=== PATIENT | female | born 1985 | race African-American/Black ===

== ENCOUNTER → 2016-07-24 | Outpatient (CLI) | payer OTHER ==
[2016-07-24 19:00] LABS: BASO % 0.5 % (0.0-1.0); EOS # 0.2 K/mm3 (0.0-0.50); EOS % 2.5 % (0.0-3.0); LARGE UNSTAINED CELL # 0.1 K/mm3 (0.0-0.4); LARGE UNSTAINED CELL % 1.9 % (0.0-4.0); MEAN CORPUSCULAR HEMOGLOBIN 29.4 pg (27.0-33.0); MEAN CORPUSCULAR HGB CONC 32.7 g/dl (32.0-36.5); MEAN CORPUSCULAR VOLUME 89.7 fl (80.0-96.0); MONO # 0.4 K/mm3 (0.0-0.8); NEUTROPHILS # 4.7 K/mm3 (1.8-7.7); NEUTROPHILS % 63.1 % (36.0-66.0); PLATELET COUNT, AUTOMATED 234 k/mm3 (150-450); RED CELL DISTRIBUTION WIDTH 12.2 % (11.5-14.5); WHITE BLOOD COUNT 7.5 K/mm3 (4.0-10.0)
[2016-07-25 10:04] LABS: HBsAg Prenatal NEGATIVE (NEGATIVE)
[2016-07-25 14:16] LABS: CONTROL LINE INT CTR LINE PRESENT; HIV SCRN NEGATIVE (NEGATIVE); HIV SCRN1 NEGATIVE (NEGATIVE)
== END ==
LOC: M SMT 14:11
PROVIDERS: ATTEND Advanced Practice Midwife
DX: Z34.81 Encounter for supervision of other normal pregnancy, first trimester (principal)

== ENCOUNTER → 2016-09-18 | Outpatient (CLI) | payer OTHER | LOC: M SMT 15:21 | PROVIDERS: ATTEND Obstetrics & Gynecology | DX: Z31.430 Encounter of female for testing for genetic disease carrier status for procreative management (principal) ==

== ENCOUNTER → 2016-10-02 | Outpatient (CLI) | payer OTHER ==
--- NOTE | 2016-10-03 05:35 | REP ---
Clinical: Anatomical evaluation. Comparison: 09/06/2016 . Findings: Examination demonstrates a single live intrauterine in transverse (head to maternal left side) presentation. motion is identified by technologist. Placenta is noted posteriorly and grade zero without evidence for placenta previa or abruption. Amniotic fluid volume is normal. Cervix measures 6.5 cm in length and appears closed. No evidence for nuchal cord. Gestational age by current measurements 18 weeks 4 days with LO 03/01/2017 . FHR equals 157 beats per minute. BPD 4.1 cm 18 weeks 3 days HC 15.3 cm 18 weeks 2 days AC 13.4 cm 18 weeks 6 days FL 3.0 cm 19 weeks 3 days HL 2.7 cm 18 weeks 5 days HC/AC ratio 1.15 Estimated weight 260 grams ( 60th percentile). Anatomical assessment demonstrates normal structures including cranium, choroid plexus, cavum, cerebellum/posterior fossa, lungs, diaphragm, stomach, cord insertion/three-vessel cord, kidneys/bladder, spine, and extremities. Limited evaluation of the facial features, heart/ventricular outflow tracts, and transverse three-vessel cord. Impression: Single live intrauterine in transverse lie. While no gross abnormalities are identified, anatomical limitations may warrant followup. Signed by Juan Oreilly MD 10/03/2016 05:26 A
== END ==
LOC: M SMT 12:56
PROVIDERS: ATTEND Obstetrics & Gynecology
DX: O34.211 Maternal care for low transverse scar from previous cesarean delivery (principal); Z36 Encounter for antenatal screening of mother; Z3A.18 18 weeks gestation of pregnancy

== ENCOUNTER → 2016-10-24 | Outpatient (CLI) | payer OTHER ==
--- NOTE | 2016-10-24 11:38 | REP ---
Clinical: Anatomical evaluation. Comparison: 10/02/2016 . Findings: Examination demonstrates a single live intrauterine in breech presentation. motion is identified by technologist. Placenta is noted posteriorly and grade 0 without evidence for placenta previa or abruption. Amniotic fluid volume is normal. Cervix measures 6.6 cm in length and appears closed. No evidence for nuchal cord. Gestational age by first ultrasound 21 weeks 5 days with LO is 03/01/2017 . Gestational age by current measurements 21 weeks 5 day with LO 03/01/2017 . FHR equals 133 beats per minute. Estimated weight 501 grams ( 66th percentile). Anatomical assessment demonstrates normal structures including cranium, choroid plexus, cavum, cerebellum/posterior fossa, facial features, lungs, four-chamber heart/ventricular outflow tracts, diaphragm, stomach, cord insertion/three-vessel cord, kidneys/bladder, spine, and extremities. Impression: Single live intrauterine in breech presentation demonstrating appropriate interval growth. Anatomical assessment is complete and normal. Signed by Juan Oreilly MD 10/24/2016 11:30 A
== END ==
LOC: M SMT 09:22
PROVIDERS: ATTEND Specialist
DX: O32.1XX0 Maternal care for breech presentation, not applicable or unspecified (principal); Z36 Encounter for antenatal screening of mother; Z3A.21 21 weeks gestation of pregnancy

== ENCOUNTER → 2016-11-27 | Outpatient (CLI) | payer OTHER ==
[2016-11-27 15:09] LABS: BASO % 0.2 % (0.0-1.0); EOS # 0.2 K/mm3 (0.0-0.50); LARGE UNSTAINED CELL # 0.1 K/mm3 (0.0-0.4); LARGE UNSTAINED CELL % 1.3 % (0.0-4.0); LYMPH # 1.8 K/mm3 (1.5-4.5); LYMPH % 19.2 % (24.0-44.0); MEAN CORPUSCULAR HEMOGLOBIN 29.1 pg (27.0-33.0); MEAN CORPUSCULAR HGB CONC 32.5 g/dl (32.0-36.5); MEAN CORPUSCULAR VOLUME 89.5 fl (80.0-96.0); MONO # 0.4 K/mm3 (0.0-0.8); NEUTROPHILS # 6.4 K/mm3 (1.8-7.7); NEUTROPHILS % 72.4 % (36.0-66.0); PLATELET COUNT, AUTOMATED 198 k/mm3 (150-450); RED CELL DISTRIBUTION WIDTH 13.9 % (11.5-14.5); WHITE BLOOD COUNT 8.9 K/mm3 (4.0-10.0)
== END ==
LOC: M SMT 10:03
PROVIDERS: ATTEND Obstetrics & Gynecology
DX: Z34.82 Encounter for supervision of other normal pregnancy, second trimester (principal); Z36 Encounter for antenatal screening of mother; Z3A.00 Weeks of gestation of pregnancy not specified

== ENCOUNTER → 2016-12-18 | Outpatient (CLI) | payer OTHER ==
[~2016-12-18] MED LIST: COLA100C5 PO; PRENTAB55 PO; PRIL20CA9 PO; TYLE500T78 PO; VICO5TAB16 PO
== END ==
LOC: M LAB 06:59
PROVIDERS: ATTEND Advanced Practice Midwife
DX: Z34.82 Encounter for supervision of other normal pregnancy, second trimester (principal); Z36 Encounter for antenatal screening of mother; Z3A.00 Weeks of gestation of pregnancy not specified

== ENCOUNTER → 2017-01-15 | Outpatient (CLI) | payer OTHER ==
--- NOTE | 2017-01-15 17:41 | REP ---
OB ULTRASOUND: Real-time sonographic evaluation of the gravid uterus is performed. There is a single living intrauterine gestation with estimated gestational age of 33 weeks 4 days. Based on the first ultrasound EDC 03/01/2017. Today's measurements indicate appropriate growth. BPD 80 mm = 32 weeks 2 days, at the 38th percentile. HC 308 mm = 34 weeks 3 days, at the 61st percentile. AC 314 mm = 35 weeks 3 day, at the 76th percentile. Femur length 68 mm = 35 weeks 1 days, at the 72nd percentile. HC/AC ratio 0.98 within normal range. Estimated weight 2532 grams 69th percentile. Cervix is closed measures 6.8 cm in length. heart rate 139 beats per minute. Amniotic fluid within normal limits, JORGITO 13.1 within normal range of 8.2 to 24.7. SD ratio normal at 2.55. RI normal at 0.61. Stomach, kidneys, and bladder are visualized and are grossly unremarkable. position vertex. Placenta is anterior with no previa. IMPRESSION: Appropriate growth. Signed by Giovanni Mares MD 01/15/2017 08:14 P
== END ==
LOC: M SMT 15:01
PROVIDERS: ATTEND Obstetrics & Gynecology
DX: Z34.83 Encounter for supervision of other normal pregnancy, third trimester (principal)

== ENCOUNTER → 2017-02-06 | Outpatient (REF) | payer OTHER | LOC: M LAB REF 13:15 | PROVIDERS: ATTEND Specialist | DX: Z34.83 Encounter for supervision of other normal pregnancy, third trimester (principal); Z36 Encounter for antenatal screening of mother; Z3A.00 Weeks of gestation of pregnancy not specified ==

== ENCOUNTER 2017-02-19 13:07 | Outpatient (CLI) | payer OTHER ==
[~2017-02-19] VITALS: Ht 162.6 cm; Wt 106.0 kg
[~2017-02-19 13:07] MED LIST changes: -COLA100C5 PO; -VICO5TAB16 PO
[2017-02-19 13:29] VITALS: BP 136/64
[2017-02-19 13:49] LABS: MEAN CORPUSCULAR HEMOGLOBIN 28.7 pg (27.0-33.0); MEAN CORPUSCULAR HGB CONC 32.8 g/dl (32.0-36.5); MEAN CORPUSCULAR VOLUME 87.7 fl (80.0-96.0); RED CELL DISTRIBUTION WIDTH 14.8 % (11.5-14.5); WHITE BLOOD COUNT 7.8 K/mm3 (4.0-10.0)
[2017-02-19 14:06] LABS: INR 0.9
[2017-02-19 15:07] VITALS: BP 109/55
[2017-02-19 17:01] VITALS: BP 123/63
== END 2017-02-19 17:12 | disposition home or self-care (01) ==
LOC: M LDO 13:07
PROVIDERS: ATTEND Advanced Practice Midwife
DX: O9A.213 Injury, poisoning and certain other consequences of external causes complicating pregnancy, third trimester (principal); S39.92XA Unspecified injury of lower back, initial encounter; X58.XXXA Exposure to other specified factors, initial encounter; Y92.019 Unspecified place in single-family (private) house as the place of occurrence of the external cause; Y93.89 Activity, other specified; Y99.8 Other external cause status; O09.293 Supervision of pregnancy with other poor reproductive or obstetric history, third trimester; Z3A.38 38 weeks gestation of pregnancy

== ENCOUNTER 2017-02-21 22:58 | Inpatient (IN) | payer OTHER ==
[~2017-02-21] VITALS: Ht 162.6 cm; Wt 120.0 kg
[2017-02-22] VITALS (14 sets, daily range): BP systolic 93–166; BP diastolic 51–85
--- NOTE | 2017-02-22 00:27 | ED PDOC ---
Provider Note 31-year-old 4, para 3002 estimated date of delivery 03/04/2017, presents at 38 weeks 4 days with complaints of bleeding. Denies loss of fluid or regular contractions. Fetus is active. Denies recent intercourse. History is significant for a fall earlier this week. She states she slid down the stairs. She was monitored on labor and delivery for 4-5 hours and then discharged. Patient is a scheduled for Saturday. Previous C-sections 2. History of a 40 week stillborn in 2004 Vital signs are stable. She is in no apparent distress. Abdomen soft, gravid, longitudinal lie, no contractions noted on the monitor. heart 145, moderate variability with accelerations, category 1 tracing. Sterile speculum exam moderate amount of old bloody discharge. Small clots. Sterile vaginal exam cervix is far posterior, soft, approximately 1 cm Assessment 31-year-old 4, para 3002 at 38 weeks 4 days. Bleeding post fall earlier this week. Reassuring status. OB ultrasound and transvaginal ultrasound to rule out abruption. CBC and Kleihauer-Betke. Observe for further bleeding Patt Sutton CNM Feb 22, 2017 00:26
[2017-02-22 01:27] LABS: MEAN CORPUSCULAR HEMOGLOBIN 29.1 pg (27.0-33.0); MEAN CORPUSCULAR HGB CONC 33.1 g/dl (32.0-36.5); MEAN CORPUSCULAR VOLUME 87.9 fl (80.0-96.0); RED CELL DISTRIBUTION WIDTH 14.8 % (11.5-14.5); WHITE BLOOD COUNT 9.2 K/mm3 (4.0-10.0)
--- NOTE | 2017-02-22 02:30 | REPUSA ---
CLINICAL HISTORY: Vaginal bleeding. TECHNIQUE: Realtime sonographic images were obtained in multiple projections via TA approach. The exa mination was performed by the correctional case manager and still images were submitted for interpretation. COMMENTS: Single, live intrauterine gestation. Vertex presentation. motion was identified. heart rate 132 beats per minute. Posterior/right lateral placental. No evidence of placental previa or placental abruption. Placenta grade 2. The amniotic fluid is within normal limits. The cervix measures 5.5 cm. No maternal adnexal abnormality. Estimated gestation age is 38 weeks and 2 days. There has been appropriate interval growth since the prior exam. gender was documented as female. Nuchal CORD was not seen. The resistive index in the umbilical cord is ranging between 0.45 and 0.61. Amniotic fluid index 12.4 cm. Estimated weight is 3453 g. IMPRESSION: Single, live intrauterine gestation. Thank you for your kind referral of this patient.
[2017-02-22] MEDS ORDERED: BICITRA 30ML SOLN UDC PO ONE (09:30)
[2017-02-22] MEDS ORDERED: LR 1,000 ML IV SCH (13:00)
[2017-02-22] MEDS ORDERED: LACTATED RINGER'S 1000 ML IV ONE (13:00)
[2017-02-22] MEDS ORDERED: OXYTOCIN INJ 10 UNITS/ML VIAL (J2590) As Ordered ONE (13:34)
[2017-02-22] MEDS ORDERED: MORPHINE PRES-FREE INJ 10 MG/10 ML VIAL (J2274) As Ordered ONE (13:34)
[2017-02-22] MEDS ORDERED: ePHEDrine SULFATE 25 MG/5 ML(5MG/ML) SYRINGE As Ordered ONE (13:37)
[2017-02-22] MEDS ORDERED: PHENYLephrine HCL 500 MCG/5 ML (100MCG/ML) SYRINGE (J2370) As Ordered ONE (13:37)
[2017-02-22] MEDS ORDERED: KETOROLAC 60 MG/2 ML VIAL (J1885) As Ordered ONE (13:45)
[2017-02-22] MEDS ORDERED: ONDANSETRON 4MG/2ML VIAL (J2405) As Ordered ONE (13:45)
[2017-02-22] MEDS ORDERED: OXYTOCIN DRIP 30 UNITS in APPROPRIATE DILUENT 1 EA IV ONE (14:15)
[2017-02-22] MEDS ORDERED: MEASLES,MUMPS,RUBELLA VACCINE INJ (MMR-II) (90707) SC SCH (14:15)
[2017-02-22] MEDS ORDERED: DOCUSATE SODIUM 100 MG CAP PO PRN (14:15)
[2017-02-22] MEDS ORDERED: RHOGAM 300 MCG (1500 IU) INJ (J2790) IM SCH (14:15)
[2017-02-22] MEDS ORDERED: ONDANSETRON 4MG/2ML VIAL (J2405) IV PRN (14:45)
[2017-02-22] MEDS ORDERED: fentaNYL 100 MCG/2 ML INJECTION (J3010) IV PRN (14:45)
[2017-02-22] MEDS: LR 1,000 ML IV SCH ×2 (16:49→23:52)
[2017-02-22] MEDS: KETOROLAC 30 MG/ML VIAL (J1885) IV SCH (20:51)
--- NOTE | 2017-02-22 21:12 | HPE ---
DATE OF ADMISSION: 02/22/2017 REASON FOR ADMISSION: Vaginal bleeding. HISTORY OF PRESENT ILLNESS: This patient is a 31-year-old 4, para 2, who presents at 38 weeks and three days estimated gestational age by last menstrual period confirmed from first-trimester ultrasound, with complaints of vaginal bleeding. She reports having a fall on Saturday. She slipped and fell down a several steps. She presented to labor and delivery at that point and was monitored and was found to be stable, and was discharged home. On the day of presentation, she reports having a large amount of vaginal bleeding, presented to labor and delivery where she was assessed and noted to have some vaginal blood on speculum exam. She reports irregular contractions as well as movement. Her course has been unremarkable. She initiated care in the first trimester, has been appropriate throughout. PAST MEDICAL HISTORY: None. PAST SURGICAL HISTORY: She has had two sections, oral surgery and a laparoscopy. MEDICATIONS: vitamins. ALLERGIES: MEDICAL TAPE. SOCIAL HISTORY: She denies any alcohol, tobacco or drug use during her . OBSTETRICAL HISTORY: She has had a still at 40 weeks, vaginal delivery for that, followed by to sections at term, both uncomplicated. PHYSICAL EXAMINATION: VITAL SIGNS: Stable. She is afebrile. She has category heart tracing. Variability on tocometer. GENERAL APPEARANCE: Is well appearing, in no acute distress. LUNGS: Clear to auscultation bilaterally. CARDIOVASCULAR: Heart regular rate and rhythm. ABDOMEN: Gravid, nontender. VAGINA: On speculum exam, she had a minimum to moderate amount of vaginal bleeding. ASSESSMENT: 1. This patient is a 31-year-old 4, para 2, at 38 weeks and three days estimated gestational age, with concerns for placenta abruption. 2. Reassuring status currently. PLAN: Proceed with delivery with a repeat section. JESUS
--- NOTE | 2017-02-22 21:43 | RO ---
DATE OF PROCEDURE: 02/22/2017 PREPROCEDURE DIAGNOSES: 1. Intrauterine at 38 weeks 3 days with concerns for placenta abruption. 2. Repeat section. POSTPROCEDURE DIAGNOSES: 1. Intrauterine at 38 weeks 3 days with concerns for placenta abruption. 2. Repeat section. OPERATIVE PROCEDURE: Repeat section. SURGEON: Juanis Mensah MD TRANSFORMER COIL WINDER: Marvin Pritchett MD ANESTHESIA: Spinal. ESTIMATED BLOOD LOSS: 500 mL. URINE OUTPUT: 100 mL INTRAVENOUS FLUIDS: 1100 mL of lactated Ringers solution. PREOPERATIVE ANTIBIOTICS: 2 grams of Ancef. OPERATIVE FINDINGS: Live born female infant, Apgars of 9 and 9. Weight was 3680 grams or 8 pounds 2 ounces. DESCRIPTION OF PROCEDURE: After informed consent was obtained and written consent was reviewed, the patient was brought to the operating room where spinal anesthesia was then placed. She was then placed in the supine position with a left lateral tilt. A Anaya catheter was placed and set to gravity. She was then prepped and draped in a normal sterile fashion. A time out in the operating room was then performed identifying the patient, procedure to be performed as well as drug allergies. Anesthesia was tested and deemed to be adequate. A Pfannenstiel skin incision was then made along the previous skin incision and carried down to the underlying rectus fascia. The fascia was scored and this incision was extended bilaterally. The fascia was then dissected off the underlying rectus muscles both superiorly and inferiorly. The rectus muscles were then in the midline. The peritoneum was then entered sharply. The vesicouterine peritoneum was then identified, was tented and excised to create a bladder flap. The bladder blade was then placed to retract back the bladder. Curvilinear incision was then made in the lower uterine segment. Amniotomy was then performed productive of clear fluid. The head was then brought to the level of the incision, was delivered atraumatically followed by delivery of shoulders and corpus. Cord was clamped times two and was cut. was taken over to the warmer with a good cry. Placenta was then drained and delivered grossly intact. The uterus was then exteriorized and cleared of all clots and debris. The uterine incision was then closed in two layers using #0 Vicryl first layer in a running locking fashion, followed by a second layer for imbrication in a running nonlocking fashion. The abdomen was then suctioned. The uterus was returned to the patient's abdomen, inspected and noted to be hemostatic. The anterior peritoneum was then reapproximated with #3-0 Vicryl. Rectus muscles were reapproximated with #3-0 Vicryl. The fascia was then closed with #0 Vicryl in a running nonlocking fashion. Subcutaneous tissue was then irrigated and suctioned. Subcutaneous tissue was then reapproximated using #3-0 Vicryl. Several strips of dermal stitches were placed with #3-0 Vicryl and the skin was closed with #4-0 Monocryl in subcuticular fashion. The incision was then clean and dry. Mastisol was applied above and below the incision. Steri-Strips were applied over the incision and the incision was then dressed. The patient was then taken to recovery in stable condition. The couple has decided to name their daughter, Aileen.
[2017-02-23 02:00] VITALS: BP 120/68
[2017-02-23] MEDS: KETOROLAC 30 MG/ML VIAL (J1885) IV SCH ×3 (02:06→14:18)
[2017-02-23 06:00] VITALS: BP 102/54
[2017-02-23] MEDS: LR 1,000 ML IV SCH ×3 (06:12→22:12)
[2017-02-23 07:36] LABS: MEAN CORPUSCULAR HEMOGLOBIN 29.1 pg (27.0-33.0); MEAN CORPUSCULAR HGB CONC 32.8 g/dl (32.0-36.5); MEAN CORPUSCULAR VOLUME 88.6 fl (80.0-96.0); RED CELL DISTRIBUTION WIDTH 14.7 % (11.5-14.5)
[2017-02-23] MEDS: PRENATAL VITAMINS CHEWABLE TABLET PO SCH (08:00)
[2017-02-23 10:17] VITALS: BP 113/69
[2017-02-23] MEDS: PERCOCET 5MG/325MG TAB PO PRN ×2 (11:11→18:13)
[2017-02-23 14:00] VITALS: BP 133/75
[2017-02-23 18:22] VITALS: BP 128/75
[2017-02-23] MEDS: IBUPROFEN 800 MG TAB PO SCH (22:04)
[2017-02-23 22:45] VITALS: BP 122/58
[2017-02-24] MEDS: PERCOCET 5MG/325MG TAB PO PRN ×3 (00:20→12:26)
[2017-02-24 05:49] VITALS: BP 114/71
[2017-02-24] MEDS: IBUPROFEN 800 MG TAB PO SCH (05:52)
[2017-02-24] MEDS: LR 1,000 ML IV SCH (06:12)
[2017-02-24] MEDS: PRENATAL VITAMINS CHEWABLE TABLET PO SCH (08:22)
[2017-02-24] MEDS ORDERED: ADACEL/BOOSTRIX VACCINE (DIPHTH/PERTUSS/ACELL/TETANUS)0.5ML SYR (90715) IM ONE (09:00)
--- NOTE | 2017-02-24 09:33 | DSES ---
DATE OF ADMISSION: 02/22/2017 DATE OF DISCHARGE:02/24/2017 DISCHARGE DIAGNOSES: 1. Placenta abruption. 2. Repeat section. DISCHARGE CONDITION: Stable. HISTORY AND HOSPITAL COURSE: Mrs. Field is a 31-year-old, 4, para 2, who presented to labor and delivery at 38 weeks 3 days estimated gestational age with active vaginal bleeding concerning for placenta abruption. I then proceeded with a repeat section which was productive of a live born female . Apgars were 9 and 9. The patient did well postoperatively. By postoperative day #2, had met all discharge criteria and was discharged home in stable condition. PHYSICAL EXAM ON DATE OF DISCHARGE: Her vital signs were stable. She was afebrile. General Appearance: Well appearing. No acute distress. Her abdomen was soft, appropriately tender. Fundus was firm below umbilicus. Her incision was clean, dry and intact, well approximated with Steri-Strips and nonerythemic. Extremities: Negative for calf tenderness. DISCHARGE MEDICATIONS: - Vicodin - ibuprofen DISCHARGE INSTRUCTIONS: 1. She was instructed to followup in two weeks for incision check. 2. To report severe pain, heavy vaginal bleeding, fever, incision issues. 3. To remain on pelvic rest for 6 weeks. JESUS
[2017-02-24] MEDS ORDERED: VICO5TAB16 PO (09:34)
[2017-02-24] MEDS ORDERED: COLA100C5 PO (09:34)
== END 2017-02-24 14:30 | disposition home or self-care (01) | DRG 766 ==
LOC: M LDO 22:58 → M LDI 02-22 09:10 → M OBS 02-22 16:33
PROVIDERS: ADMIT Obstetrics & Gynecology; ATTEND Obstetrics & Gynecology
PROC: 10D00Z1 Extraction of Products of Conception, Low, Open Approach (ICD-10-PCS; principal; 2017-02-22 13:09)
DX: O45.93 Premature separation of placenta, unspecified, third trimester (principal); Z3A.38 38 weeks gestation of pregnancy; Z37.0 Single live birth; Z91.81 History of falling; O9A.213 Injury, poisoning and certain other consequences of external causes complicating pregnancy, third trimester; S39.92XA Unspecified injury of lower back, initial encounter; W10.9XXA Fall (on) (from) unspecified stairs and steps, initial encounter; Y92.019 Unspecified place in single-family (private) house as the place of occurrence of the external cause; Y93.89 Activity, other specified; Y99.8 Other external cause status

== ENCOUNTER → 2018-02-28 | Outpatient (CLI) | payer OTHER | LOC: M RAD 06:13 | DX: R11.2 Nausea with vomiting, unspecified (principal) ==

== ENCOUNTER 2018-03-07 09:48 | Day surgery (SDC) | payer OTHER ==
[2018-03-07] MEDS: NS 1,000 ML IV (10:17)
[2018-03-07] MEDS ORDERED: LIDOCAINE 2% INJ 100 MG/5 ML SDV (FOR ANES.) As Ordered (10:54)
[2018-03-07] MEDS ORDERED: PROPOFOL 200 MG/20 ML VIAL As Ordered ×2 (10:54→11:04)
== END 2018-03-07 12:16 | disposition home or self-care (01) ==
LOC: M OPP 09:48
DX: K64.8 Other hemorrhoids (principal); D12.2 Benign neoplasm of ascending colon; D12.3 Benign neoplasm of transverse colon; D12.4 Benign neoplasm of descending colon; K92.1 Melena; G47.30 Sleep apnea, unspecified; F41.9 Anxiety disorder, unspecified; F32.9 Major depressive disorder, single episode, unspecified; G43.909 Migraine, unspecified, not intractable, without status migrainosus; Z79.899 Other long term (current) drug therapy; Z91.048 Other nonmedicinal substance allergy status
CPT/HCPCS: 45385

== ENCOUNTER → 2018-04-09 | Outpatient (CLI) | payer OTHER ==
[~2018-04-09] MED LIST changes: -PRENTAB55 PO; -PRIL20CA9 PO; +PROHANCE 279.3MG/ML 15ML VIAL (A9576) As Ordered; +PROHANCE 279.3MG/ML 5ML VIAL (A9576) As Ordered; -TYLE500T78 PO
== END ==
LOC: M RAD 11:08
DX: Q44.6 Cystic disease of liver (principal)

== ENCOUNTER → 2018-08-08 | Outpatient (REF) | payer OTHER ==
[~2018-08-08] MED LIST changes: +COLA100C5 PO; +MACR100C43 PO; +NORE0.353 PO; +OMEP20CA3 PO; +PRENTAB29 PO; +PRENTAB55 PO; +PRIL20CA9 PO; -PROHANCE 279.3MG/ML 15ML VIAL (A9576) As Ordered; -PROHANCE 279.3MG/ML 5ML VIAL (A9576) As Ordered; +TYLE500T78 PO; +VICO5TAB16 PO
[2018-08-08 22:44] LABS: CHLAMYDIA DNA AMPLIFICATION NEGATIVE (NEGATIVE); GC DNA AMPLIFICATION NEGATIVE (NEGATIVE)
== END ==
LOC: M SFHCLERA 15:17
PROVIDERS: ATTEND Nurse Practitioner Family
DX: N30.00 Acute cystitis without hematuria (principal)

== ENCOUNTER 2018-08-12 11:00 | Day surgery (SDC) | payer OTHER ==
[~2018-08-12] VITALS: Ht 162.6 cm; Wt 111.1 kg
[~2018-08-12 11:00] MED LIST changes: -MACR100C43 PO; +NS 1,000 ML IV ONE
[2018-08-12] MEDS ORDERED: MACR100C43 PO (12:53)
[2018-08-12] MEDS ORDERED: PROPOFOL 200 MG/20 ML VIAL As Ordered ONE (13:23)
[2018-08-12 13:55] VITALS: BP 130/85
--- NOTE | 2018-08-12 13:57 | ROOR ---
Patient Name: Marlyn Hawknis Procedure Date: 08/12/2018 1:03 PM Date of : 1985 Age: 32 Room: [facility] Gender: Female Note Status: Finalized Procedure: Upper GI endoscopy Indications: Surveillance for malignancy due to personal history of polyposis syndrome, Familial Adenomatous Polyposis syndrome Providers: Elvis Ritter MD Referring MD: 1. No Referring Physician 1. No Referring Physician, Admin. Requesting Provider: Medicines: Monitored Anesthesia Care Complications: No immediate complications. Procedure: Pre-Anesthesia Assessment: - Prior to the procedure, a History and Physical was performed, and patient medications and allergies were reviewed. The patient is competent. The risks and benefits of the procedure and the sedation options and risks were discussed with the patient. All questions were answered and informed consent was obtained. Patient identification and proposed procedure were verified by the physician, the nurse and the anesthesiologist in the procedure room. Mental Status Examination: alert and oriented. Airway Examination: normal oropharyngeal airway and neck mobility. Respiratory Examination: clear to auscultation. CV Examination: normal. Prophylactic Antibiotics: The patient does not require prophylactic antibiotics. Prior Anticoagulants: The patient has taken no previous anticoagulant or antiplatelet agents. ASA Grade Assessment: II - A patient with mild systemic disease. After reviewing the risks and benefits, the patient was deemed in satisfactory condition to undergo the procedure. The anesthesia plan was to use monitored anesthesia care (MAC). Immediately prior to administration of medications, the patient was re-assessed for adequacy to receive sedatives. The heart rate, respiratory rate, oxygen saturations, blood pressure, adequacy of pulmonary ventilation, and response to care were monitored throughout the procedure. The physical status of the patient was re-assessed after the procedure. The Endoscope was introduced through the mouth, and advanced to the second part of duodenum. The upper GI endoscopy was accomplished without difficulty. The patient tolerated the procedure well. Findings: The examined esophagus was normal. Multiple 6 mm sessile fundic gland polyps with no bleeding and no stigmata of recent bleeding were found in the gastric fundus and in the gastric body. Two biopsies were obtained with cold forceps for histology in the gastric antrum, as well as five biopsies in the gastric body and four biopsies in the gastric fundus. Verification of patient identification for the specimen was done by the physician and nurse using the patient's name, date and medical record number. Estimated blood loss was minimal. The duodenal bulb, second portion of the duodenum, major papilla, area of the papilla, third portion of the duodenum and fourth portion of the duodenum were normal. There is no endoscopic evidence of mass or polyps in the examined jejunum ( atleast 25 cm was examined). Impression: - Normal esophagus. - Multiple fundic gland polyps. - Normal duodenal bulb, second portion of the duodenum, major papilla, area of the papilla, third portion of the duodenum and fourth portion of the duodenum and upto 25 cm of proximal jejunum. - Biopsies performed in the gastric antrum, in the gastric body and in the gastric fundus. Recommendation: - Patient has a contact number available for emergencies. The signs and symptoms of potential delayed complications were discussed with the patient. Return to normal activities tomorrow. Written discharge instructions were provided to the patient. - Resume previous diet. - Continue present medications. - Await pathology results. - Repeat upper endoscopy in 6 months for surveillance of multiple polyps. - Return to GI clinic in 6 months. - Return to primary care physician. Elvis Ritter MD Elvis Ritter MD 08/12/2018 1:56:50 PM This report has been signed electronically. Number of Addenda: 0 Note Initiated On: 08/12/2018 1:03 PM Estimated Blood Loss: Estimated blood loss was minimal.
== END 2018-08-12 14:21 | disposition home or self-care (01) ==
LOC: M OPP 11:00
PROVIDERS: ATTEND Internal Medicine Gastroenterology
DX: K31.7 Polyp of stomach and duodenum (principal); Z86.010 Personal history of colon polyps; Z83.71 Family history of colonic polyps

== ENCOUNTER → 2018-09-03 | Outpatient (CLI) | payer OTHER ==
[~2018-09-03] MED LIST changes: +MACR100C43 PO; -NS 1,000 ML IV ONE; +PROHANCE 279.3MG/ML 15ML VIAL (A9576) As Ordered ONE; +PROHANCE 279.3MG/ML 5ML VIAL (A9576) As Ordered ONE
--- NOTE | 2018-09-03 15:24 | REP ---
MRI LIVER WITH AND WITHOUT CONTRAST: COMPARISON: 04/09/2018 TECHNIQUE: Multiple sequences obtained in the axial and coronal planes prior to and following the intravenous administration of 20 mL ProHance. Once again, in the right lobe of the liver posterior segment, there is an enhancing lesion in the arterial phase of postcontrast imaging. There is central enhancement with a rim of hypointensity. Diameter is approximately 1.2 cm. This is unchanged. More inferiorly in the posterior segment of the right lobe of the liver laterally, there is a 2.6 cm enhancing nodule which has similar enhancement characteristics. This is also unchanged. No new liver nodule is seen. Spleen, adrenals, pancreas, and kidneys are unremarkable. There is no adenopathy in the visualized abdomen nor is there evidence of free fluid. There is a tiny amount of pleural fluid present bilaterally. IMPRESSION: Stable liver nodules as discussed above when compared to the prior study of 04/09/2018. Again, these are felt to most likely represent adenomas. Recommend followup exam in 6-12 months. Electronically Signed by Giovanni Mares MD 09/03/2018 04:57 P
== END ==
LOC: M RAD 13:08
PROVIDERS: ATTEND Internal Medicine Gastroenterology
DX: Q44.6 Cystic disease of liver (principal); D13.4 Benign neoplasm of liver
CPT/HCPCS: 74183; A9576

== ENCOUNTER → 2018-10-23 | Outpatient (CLI) | payer OTHER ==
[~2018-10-23] MED LIST changes: +ACET1LIQ PO; +IBUP-1114 PO; +PERC5TAB12 PO; -PROHANCE 279.3MG/ML 15ML VIAL (A9576) As Ordered ONE; -PROHANCE 279.3MG/ML 5ML VIAL (A9576) As Ordered ONE; -VICO5TAB16 PO; +VICO5TAB17 PO
== END ==
LOC: M LAB 11:36
PROVIDERS: ATTEND Obstetrics & Gynecology
DX: O20.0 Threatened abortion (principal); Z3A.00 Weeks of gestation of pregnancy not specified

== ENCOUNTER 2018-10-24 19:23 | Day surgery (SDC) | payer OTHER ==
[~2018-10-24] VITALS: Ht 162.6 cm; Wt 113.6 kg
[~2018-10-24 19:23] MED LIST changes: -ACET1LIQ PO; -IBUP-1114 PO; -PERC5TAB12 PO
[2018-10-24] MEDS ORDERED: PERC5TAB12 PO (19:35)
[2018-10-24] MEDS ORDERED: ONDANSETRON 4MG/2ML VIAL (J2405) IV ONE (20:00)
[2018-10-24 20:49] LABS: BASO % 0.4 % (0.0-1.0); EOS # 0.2 10^3/uL (0.0-0.50); EOS % 1.8 % (0.0-3.0); HEMATOCRIT 37.8 % (36.0-47.0); HEMOGLOBIN 12.2 g/dl (12.0-15.5); LYMPH # 2.5 10^3/uL (1.5-4.5); LYMPH % 27.5 % (24.0-44.0); MEAN CORPUSCULAR HEMOGLOBIN 29.3 pg (27.0-33.0); MEAN CORPUSCULAR HGB CONC 32.3 g/dl (32.0-36.5); MEAN CORPUSCULAR VOLUME 90.6 fl (80.0-96.0); MONO # 0.6 10^3/uL (0.0-0.8); MONO % 6.4 % (0.0-5.0); NEUTROPHILS # 5.8 10^3/uL (1.8-7.7); NEUTROPHILS % 63.7 % (36.0-66.0); PLATELET COUNT, AUTOMATED 257 10^3/uL (150-450); RED BLOOD COUNT 4.17 10^6/uL (4.00-5.40)
[2018-10-24] MEDS: MORPHINE 4 MG/ML 1ML VIAL/SYRINGE (J2270) IV PRN ×2 (20:53→21:40)
--- NOTE | 2018-10-24 20:57 | REPVR ---
EXAM: US First Trimester, Transabdominal EXAM DATE/TIME: 10/24/2018 8:19 PM CLINICAL HISTORY: 33 years old, female; complicated by abdominal or pelvic pain; Lower; First trimester; Gestational age or lmp: 08/13/18; ; Additional info: Worsening pelvic pain, positive hcg TECHNIQUE: Imaging protocol: Real-time transabdominal obstetrical ultrasound of the maternal pelvis and a first trimester , less than 14 weeks 0 days, with image documentation. COMPARISON: No relevant prior studies available. FINDINGS: GESTATION: Gestation: Gestational sac within the endometrium with no pole or yolk sac. BIOMETRY: Mean sac diameter: Mean sac size is 31 mm which suggests an age of 8 weeks 2 days. By size of the sac, findings are consistent with failed or blighted ovum. MATERNAL: Uterus: The uterus measures 11.5 cm in its cephalocaudad dimension and 6.5 x 7.3 cm in its AP and lateral dimensions. Cervix: Unremarkable. Right adnexa: The right ovary measures 2.2 x 3.2 x 2.4 cm and demonstrates blood flow. Left adnexa: The left ovary measures 3.1 x 3.8 x 2.0 cm and demonstrates blood flow. Intraperitoneal: No intraperitoneal free fluid. IMPRESSION: 1. Gestational sac measuring 31 mm with no pole or yolk sac consistent with failed or blighted ovum. 2. Otherwise negative pelvic sonogram. Electronically signed by: Frankie Mendez On 10/24/2018 20:57:47 PM
[2018-10-24] MEDS ORDERED: dexameTHASONE 4 MG/ML 1ML VIAL (J1100) As Ordered ONE (23:39)
[2018-10-24] MEDS ORDERED: PROPOFOL 200 MG/20 ML VIAL As Ordered ONE (23:39)
[2018-10-24] MEDS ORDERED: ONDANSETRON 4MG/2ML VIAL (J2405) As Ordered ONE (23:39)
[2018-10-24] MEDS ORDERED: LIDOCAINE 2% INJ 100 MG/5 ML SDV (FOR ANES.) As Ordered ONE (23:39)
[2018-10-24] MEDS ORDERED: MIDAZOLAM INJ 2 MG/2 ML VIAL (J2250) As Ordered ONE (23:40)
[2018-10-24] MEDS ORDERED: fentaNYL 100 MCG/2 ML INJECTION (J3010) As Ordered ONE (23:40)
[2018-10-25] MEDS ORDERED: KETOROLAC 60 MG/2 ML VIAL (J1885) As Ordered ONE (00:52)
[2018-10-25] MEDS ORDERED: PERCOCET 5MG/325MG TAB PO PRN ×2 (00:55→03:15)
[2018-10-25] MEDS ORDERED: fentaNYL 100 MCG/2 ML INJECTION (J3010) IV PRN (00:55)
[2018-10-25] MEDS ORDERED: MEPERIDINE INJ 25 MG/ML VIAL (J2175) IV PRN (00:55)
[2018-10-25] MEDS ORDERED: METOCLOPRAMIDE INJ 10MG/2ML VIAL (J2765) IV PRN (00:55)
[2018-10-25] MEDS ORDERED: ONDANSETRON 4MG/2ML VIAL (J2405) IV PRN (00:55)
[2018-10-25] MEDS ORDERED: PROPOFOL 200 MG/20 ML VIAL As Ordered ONE (00:56)
[2018-10-25 02:15] VITALS: BP 123/66
[2018-10-25] MEDS ORDERED: DOXYCYCLINE HYCLATE 100 MG TAB PO ONE (03:00)
[2018-10-25 03:15] VITALS: BP 139/78
[2018-10-25] MEDS ORDERED: LR 1,000 ML IV SCH (03:15)
[2018-10-25 04:15] VITALS: BP 126/61
[2018-10-25 05:15] VITALS: BP 116/64
[2018-10-25 06:15] VITALS: BP 137/71
[2018-10-25 07:15] VITALS: BP 126/83
[2018-10-25] MEDS ORDERED: IBUP-1114 PO (08:35)
[2018-10-25] MEDS ORDERED: ACET1LIQ PO (08:35)
--- NOTE | 2018-10-25 11:41 | RO ---
DATE OF PROCEDURE: 10/25/2018 PREPROCEDURE DIAGNOSIS: Missed . POSTPROCEDURE DIAGNOSIS: Missed . OPERATIVE PROCEDURE: Dilation, evacuation and curettage (D, E and C). SURGEON: Marvin Pritchett MD HYDROGEN OPERATOR: ANESTHESIA: General endotracheal. ESTIMATED BLOOD LOSS: 50 mL URINE OUTPUT: 30 mL FINDINGS: Moderate amount of products of conception. Anteverted uterus. OPERATIVE SUMMARY: Patient taken to the operating room where general endotracheal anesthesia was induced. She was prepped and draped in sterile fashion in the dorsal lithotomy position. The bladder was emptied with a catheter. Speculum was placed in the vagina. The anterior lip of the cervix was grasped with tenaculum. Cervix was dilated with tapered dilators. A #9 mm suction curette was placed through the internal os. The suction device was activated and the curette was gently rotated. The products of conception were noted coming through the suction tubing. Sharp curettage was performed. Uterine cavity was deemed to be empty. All instruments removed. Sponge and instrument counts were correct.
== END 2018-10-25 09:00 | disposition home or self-care (01) ==
LOC: M ED 19:23 → M SDC 23:10 → M MSPAV 10-25 01:46 → M SDC 10-25 09:00
PROVIDERS: ATTEND Specialist
DX: O02.1 Missed abortion (principal); E66.01 Morbid (severe) obesity due to excess calories; G47.33 Obstructive sleep apnea (adult) (pediatric); K21.9 Gastro-esophageal reflux disease without esophagitis; F41.9 Anxiety disorder, unspecified; F32.9 Major depressive disorder, single episode, unspecified; G43.909 Migraine, unspecified, not intractable, without status migrainosus; Z68.43 Body mass index [BMI] 50.0-59.9, adult
CPT/HCPCS: 59820; 76801; 84702; 85025; 86850; 86900; 86901; 88305; 96374; 96375; 99284; J1100; J1885; J2250; J2270; J2405; J3010

== ENCOUNTER → 2018-10-24 | Outpatient (REF) | payer OTHER | LOC: M LABDRAWC 16:58 | PROVIDERS: ATTEND Obstetrics & Gynecology | DX: O20.0 Threatened abortion (principal); Z3A.00 Weeks of gestation of pregnancy not specified ==